=== PATIENT | male | born 1950 | race Caucasian/White ===

== ENCOUNTER → 2017-06-04 | Outpatient (CLI) | payer OTHER ==
[~2017-06-04] MED LIST: CLOP75TA PO; DOXA4TAB3 PO; HYDR12.58 PO; LANS30CA PO; SIMV20TA3 PO
[2017-06-04 13:46] LABS: HEMATOCRIT 48.5 % (39.2-51.8); HEMOGLOBIN 16.5 g/dL (13.7-18.0); WHITE BLOOD COUNT 6.5 x10^3/uL (3.4-10)
[2017-06-04 14:01] LABS: ASPARTATE AMINO TRANSFERASE 14 U/L (15-37); BLOOD UREA NITROGEN 14 mg/dL (7-18)
== END | disposition home or self-care (01) ==
LOC: STAR 12:53
PROVIDERS: ATTEND Internal Medicine Cardiovascular Disease
DX: Z01.818 Encounter for other preprocedural examination (principal); R06.02 Shortness of breath
CPT/HCPCS: 36415; 71020; 80053; 85025; 85610

== ENCOUNTER → 2017-06-04 | Outpatient (CLI) | payer OTHER ==
[~2017-06-04] MED LIST changes: +REGADENOSON 0.4 MG/5 ML SYRINGE ONE
== END | disposition home or self-care (01) ==
LOC: CFH 08:10
PROVIDERS: ATTEND Internal Medicine Cardiovascular Disease
DX: I25.9 Chronic ischemic heart disease, unspecified (principal); R00.2 Palpitations
CPT/HCPCS: 78452; 93017; A9502; J2785

== ENCOUNTER 2017-06-09 06:31 | Day surgery (SDC) | payer OTHER ==
[2017-06-04 13:28] VITALS: BP 145/79
[~2017-06-09] VITALS: Ht 184.2 cm; Wt 97.7 kg
[~2017-06-09 06:31] MED LIST changes: -REGADENOSON 0.4 MG/5 ML SYRINGE ONE
[2017-06-09] MEDS ORDERED: SODIUM CHLORIDE 0.9% 1,000 ML IV SCH (06:45)
[2017-06-09] MEDS ORDERED: MIDAZOLAM 1 MG/ML, 5ML ONE (07:42)
[2017-06-09] MEDS ORDERED: ISOPROTERENOL 0.2MG/ML, 5ML ONE (07:43)
[2017-06-09] MEDS ORDERED: LIDOCAINE 2%, 20ML ONE ×2 (07:43→09:35)
[2017-06-09] MEDS ORDERED: HEPARIN 1,000 UNITS/ML, 10ML ONE (07:43)
[2017-06-09] MEDS ORDERED: FENTANYL PF 100 MCG/2ML ONE (07:43)
[2017-06-09] MEDS ORDERED: PROTAMINE SULFATE 10 MG/ML, 5ML ONE (07:43)
[2017-06-09] MEDS ORDERED: ACETAMINOPHEN 325 MG TABLET PO PRN (10:00)
[2017-06-09] MEDS ORDERED: SIMVASTATIN 20 MG TABLET PO SCH (21:00)
[2017-06-10] MEDS ORDERED: PANTOPROZOLE 40MG TABLET PO SCH (09:00)
[2017-06-10] MEDS ORDERED: DOXAZOSIN 2MG TABLET PO SCH (09:00)
[2017-06-10] MEDS ORDERED: CLOPIDOGREL 75 MG TABLET PO SCH (09:00)
[2017-06-10] MEDS ORDERED: HYDROCHLOROTHIAZIDE 12.5 MG CAPSULE PO SCH (09:00)
[2017-06-25] MEDS ORDERED: ASPIRIN 325 MG TABLET EC ONE (11:06)
== END 2017-06-09 15:00 ==
LOC: CACL 06:31
PROVIDERS: ATTEND Internal Medicine Cardiovascular Disease
DX: I47.1 Supraventricular tachycardia (principal); I10 Essential (primary) hypertension; E78.4 Other hyperlipidemia; Z85.820 Personal history of malignant melanoma of skin; Z86.73 Personal history of transient ischemic attack (TIA), and cerebral infarction without residual deficits; I49.40 Unspecified premature depolarization
CPT/HCPCS: 33282; 93620; 93621; 93623; 99156; 99157; C1730; C1764; C1894; J2250; J3010; J3490; J1644; J2720

== ENCOUNTER 2017-06-25 10:02 | Day surgery (SDC) | payer OTHER ==
[~2017-06-25] VITALS: Ht 185.4 cm; Wt 99.0 kg
[2017-06-25] MEDS ORDERED: BISACODYL 5 MG EC TABLET PO PRN (10:30)
[2017-06-25] MEDS ORDERED: SODIUM CHLORIDE 0.9% 1,000 ML IV SCH (10:30)
[2017-06-25] MEDS ORDERED: ONDANSETRON 2MG/ML, 2ML IVPush PRN (10:30)
[2017-06-25] MEDS ORDERED: BISACODYL 10 MG SUPP PR PRN (10:30)
[2017-06-25] MEDS ORDERED: ASPIRIN 325 MG TABLET EC PO ONE (10:30)
[2017-06-25] MEDS ORDERED: ACETAMINOPHEN 325 MG TABLET PO PRN (10:30)
[2017-06-25] MEDS ORDERED: LISI2.5T PO (10:32)
[2017-06-25 10:51] VITALS: BP 151/86
[2017-06-25] MEDS ORDERED: MIDAZOLAM 1 MG/ML, 5ML ONE (11:46)
[2017-06-25] MEDS ORDERED: LIDOCAINE 2%, 20ML ONE (11:46)
[2017-06-25] MEDS ORDERED: FENTANYL PF 100 MCG/2ML ONE (11:46)
[2017-06-25] MEDS ORDERED: SIMVASTATIN 20 MG TABLET PO SCH (21:00)
[2017-06-25] MEDS ORDERED: ZOLPIDEM 5MG TABLET PO PRN (21:00)
[2017-06-26] MEDS ORDERED: CLOPIDOGREL 75 MG TABLET PO SCH (09:00)
[2017-06-26] MEDS ORDERED: HYDROCHLOROTHIAZIDE 12.5 MG CAPSULE PO SCH (09:00)
[2017-06-26] MEDS ORDERED: TEMPLATE NON-FORMULARY MED. (Lisinopril** 2.5 MG) PO SCH (09:00)
[2017-06-26] MEDS ORDERED: TEMPLATE NON-FORMULARY MED. (Doxazosin Mesylate** 4 MG) PO SCH (09:00)
[2017-06-26] MEDS ORDERED: TEMPLATE NON-FORMULARY MED. (Lansoprazole** 30 MG) PO SCH (09:00)
== END 2017-06-25 15:14 ==
LOC: CACL 10:02
PROVIDERS: ATTEND Internal Medicine Cardiovascular Disease
DX: I25.10 Atherosclerotic heart disease of native coronary artery without angina pectoris (principal); E78.5 Hyperlipidemia, unspecified; I10 Essential (primary) hypertension; I49.40 Unspecified premature depolarization; K21.9 Gastro-esophageal reflux disease without esophagitis; E78.4 Other hyperlipidemia; Z85.820 Personal history of malignant melanoma of skin
CPT/HCPCS: 93458; 99156; C1760; C1769; C1894; J2250; J3010; J3490; Q9967

== ENCOUNTER 2018-02-19 06:52 | Day surgery (SDC) | payer OTHER ==
[~2018-02-19] VITALS: Ht 182.9 cm; Wt 97.7 kg
[~2018-02-19 06:52] MED LIST changes: +LISI2.5T PO
[2018-02-19 07:16] VITALS: BP 137/91
[2018-02-19] MEDS ORDERED: LOSA50TA6 PO (07:24)
[2018-02-19] MEDS ORDERED: SODIUM CHLORIDE 0.9% 1,000 ML IV SCH (07:30)
[2018-02-19] MEDS ORDERED: PLEASE ENTER HEIGHT AND WEIGHT MC SCH (07:30)
[2018-02-19] MEDS ORDERED: PROPOFOL 10 MG/ML, 20ML ONE (08:06)
== END 2018-02-19 09:39 ==
LOC: CACL 06:52
PROVIDERS: ATTEND Internal Medicine Cardiovascular Disease
DX: I70.0 Atherosclerosis of aorta (principal); I10 Essential (primary) hypertension; E78.4 Other hyperlipidemia; I49.40 Unspecified premature depolarization; I48.91 Unspecified atrial fibrillation; Z85.820 Personal history of malignant melanoma of skin; Z86.73 Personal history of transient ischemic attack (TIA), and cerebral infarction without residual deficits
CPT/HCPCS: 93312; 93321; 93325; J2704

== ENCOUNTER → 2018-03-25 | Outpatient (CLI) | payer OTHER, MEDICARE ==
[~2018-03-25] MED LIST changes: +LOSA50TA6 PO
== END | disposition home or self-care (01) ==
LOC: CVU 07:42
PROVIDERS: ATTEND Internal Medicine Cardiovascular Disease
DX: I65.23 Occlusion and stenosis of bilateral carotid arteries (principal); I10 Essential (primary) hypertension; E78.5 Hyperlipidemia, unspecified; Z87.891 Personal history of nicotine dependence; Z86.73 Personal history of transient ischemic attack (TIA), and cerebral infarction without residual deficits
CPT/HCPCS: 93880

== ENCOUNTER → 2018-12-09 | Outpatient (CLI) | payer MEDICARE, OTHER ==
[~2018-12-09] MED LIST changes: -HYDR12.58 PO; +HYDROCHLOROTH12.5 MG PO; +LOSA50TA14 PO; -LOSA50TA6 PO; +REGADENOSON 0.4 MG/5 ML SYRINGE ONE
== END | disposition home or self-care (01) ==
LOC: CFH 07:35
PROVIDERS: ATTEND Physician Assistant Medical
DX: I47.1 Supraventricular tachycardia (principal); R06.02 Shortness of breath
CPT/HCPCS: 78452; 93017; A9502; J2785

== ENCOUNTER → 2020-02-01 | Outpatient (CLI) | payer MEDICARE ==
[~2020-02-01] MED LIST changes: -REGADENOSON 0.4 MG/5 ML SYRINGE ONE; +SIMV20TA19 PO; -SIMV20TA3 PO
== END | disposition home or self-care (01) ==
LOC: CVU 14:27
PROVIDERS: ATTEND Internal Medicine Cardiovascular Disease
DX: I34.0 Nonrheumatic mitral (valve) insufficiency (principal); I48.91 Unspecified atrial fibrillation; I10 Essential (primary) hypertension
CPT/HCPCS: 93306

== ENCOUNTER 2021-03-14 07:15 | Day surgery (SDC) | payer MEDICARE, OTHER ==
[~2021-03-14] VITALS: Ht 182.9 cm; Wt 100.0 kg
[2021-03-14] MEDS ORDERED: LIDOCAINE 2%, 20ML ONE (07:40)
== END 2021-03-14 09:19 | disposition home or self-care (01) ==
LOC: CACL 07:15
PROVIDERS: ATTEND Internal Medicine Cardiovascular Disease
DX: Z45.09 Encounter for adjustment and management of other cardiac device (principal); Q21.1 Atrial septal defect; I48.0 Paroxysmal atrial fibrillation; I10 Essential (primary) hypertension; E78.2 Mixed hyperlipidemia; G47.30 Sleep apnea, unspecified; Z86.73 Personal history of transient ischemic attack (TIA), and cerebral infarction without residual deficits; Z98.890 Other specified postprocedural states; Z79.899 Other long term (current) drug therapy; Z87.891 Personal history of nicotine dependence
CPT/HCPCS: 33285; 33286; C1764